=== PATIENT | male | born 1940 | race Caucasian/White ===

== ENCOUNTER 2017-12-10 10:19 | Inpatient (IN) | payer MEDICARE ==
[2017-12-10] MEDS ORDERED: NS 0.9% 1000 ML* 1,000 ML IV ONE (10:23)
[2017-12-10] MEDS ORDERED: niCARdipine 0.1MG/ML IVPREMIX* 20 MG/200 ML BAG IV ONE (10:24)
--- NOTE | 2017-12-10 10:30 | ED ---
Neurological HPI - HPI Summary HPI Summary: This patient is a 77 year old M BIBA accompanied by a female with a chief complaint of left sided numbness since 6:30 AM this morning. EMS reported left sided numbness, left side facial droop, slurred speech, and PMHx of CHF. Pt woke up feeling nml but started feeling symptoms around 6:30 AM. Pt does not recall whether his speech was nml upon waking Pt reports weakness. Pt denies CUMMINS and smoking (former smoker). PMHx of stroke three years ago, after which the pt felt his balance was off when walking, but did not feel weak. Pt reports taking aspirin regularly but no other medications. - History of Current Complaint Stated Complaint: LEFT SIDE WEAKNESS Time Seen by Provider: 12/10/17 10:23 Hx Obtained From: Patient, Family/Principal Bioinformatics Specialist Onset/Duration: Sudden Onset Timing: Constant Onset Severity: Severe Current Severity: Severe Neurological Deficit Location: LUE, LLE Character: Weak, Impaired Speech - Additional Pertinent History Primary Care Physician: ADAM - Allergy/Home Medications Allergies/Adverse Reactions: Allergies Allergy/AdvReac Type Severity Reaction Status Date / Time lisinopril Allergy Intermediate Coughing Verified 12/10/17 11:45 Home Medications: Home Medications Aspirin EC TAB* [Ecotrin EC Low Dose 81 MG*] 81 mg PO DAILY 12/10/17 [History Confirmed 12/10/17] Metoprolol Tartrate TAB* [Lopressor TAB*] 50 mg PO BID 12/10/17 [History Confirmed 12/10/17] amLODIPine TAB* [Norvasc 5 mg TAB*] 10 mg PO DAILY 12/10/17 [History Confirmed 12/10/17] PMH/Surg Hx/FS Hx/Imm Hx Cardiovascular History: Reports: Hx Congestive Heart Failure, Hx Hypertension, Hx Valvular Heart Disease - CHOLESTEROL CONTROL WITH MEDS, Other Cardiovascular Problems/Disorders - CHOLESTEROL CONTROL WITH MEDIS Denies: Hx Pacemaker/ICD GI History: Reports: Hx Gastroesophageal Reflux Disease - RELATED TO WHAT HE EATS, MAINLY SPICY FOODS, NONE RECENLY History: Reports: Other Problems/Disorders - 1994 BLADDER CANCER Sensory History: Reports: Hx Cataracts - with surgery Denies: Hx Contacts or Glasses, Hx Glaucoma, Hx Hearing Aid Opthamlomology History: Reports: Hx Cataracts - with surgery Denies: Hx Contacts or Glasses, Hx Glaucoma Neurological History: Reports: Hx Transient Ischemic Attacks (TIA) - 2004 Psychiatric History: Denies: Hx Panic Disorder - Cancer History Cancer Type, Location and Year: Bladder CA 1995; recurrence last week. Hx Chemotherapy: No - Surgical History Surgery Procedure, Year, and Place: 1959'S GLASS REMOVED FROM LEFT WRIST,. 1995 CYSTOSCOPY WITH TURBT, [facility]. CATARACT SURGERY 1996 & 2012, [facility] AND [place]. 08/2014 CYSTOSCOPY WITH TURBT, [facility] Hx Anesthesia Reactions: No - Family History Known Family History: Positive: Cardiac Disease, Hypertension Family History: No FHx of malignant hyperthermia or anesthesia reaction. - Social History Alcohol Use: Occasionally Substance Use Type: Reports: None Hx Tobacco Use: No Smoking Status (MU): Former Smoker Type: Cigarettes Amount Used/How Often: 1 PPD/ Length of Time of Smoking/Using Tobacco: 35 YRS Have You Smoked in the Last Year: No Review of Systems Negative: Fever Negative: Vomiting Positive: Weakness - left sided, Numbness - left side, Slurred Speech. Negative : Headache All Other Systems Reviewed And Are Negative: Yes Physical Exam - Summary Physical Exam Summary: Appearance: Well appearing, no pain distress Skin: warm, dry, reflects adequate perfusion Head/face: normal Eyes: EOMI, WESLY ENT: normal Neck: supple, non-tender Respiratory: CTA, breath sounds present, lungs diminished but clear Cardiovascular: RRR, pulses symmetrical, heart bradycardic Abdomen: non-tender, soft Bowel Sounds: present Musculoskeletal: LLE weakness with dysarthria, ataxia in the left side Neuro: normal, sensory motor intact, A&Ox3 GCS: 15 Triage Information Reviewed: Yes Vital Signs Reviewed: Yes Diagnostics - Laboratory Result Diagrams: 12/10/17 11:36 12/10/17 11:36 Lab Statement: Any lab studies that have been ordered have been reviewed, and results considered in the medical decision making process. - Radiology Brain MRI Radiology Interpretation Completed By: Radiologist - Small focus of acute or subacute ischemia at the RIGHT para midline midbrain ruddy junction. Negative for mass effect. #. Moderate involutional change and stigmata of chronic small vessel ischemic disease. #. Paranasal sinus disease without stigmata of acute sinusitis. RIGHT mastoid effusions. Results discussed with Nurse Matute in the ICU 12/10/2017 4:38 PM EDT ED Physician reviewed this report CXR Radiology Interpretation Completed By: Radiologist - IMPRESSION: NO ACTIVE CARDIOPULMONARY DISEASE. ER Physician reviewed this report - CT Brain CT Interpretation Completed By: Radiologist - NO ACUTE INTRACRANIAL PATHOLOGY. MILD CHRONIC SMALL VESSEL ISCHEMIC CHANGE. PRELIMINARY FINDINGS WERE DISCUSSED WITH DR. MEJÍA IN THE EMERGENCY DEPARTMENT AT APPROXIMATELY 10:35 AM ON DECEMBER 10, 2017. Head CTA CT Interpretation Completed By: Radiologist - 1. ATHEROSCLEROSIS. 2. 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 NO RIGHT INTERNAL CAROTID ARTERY STENOSIS BY NASCET CRITERIA. 3. MODERATE STENOSIS OF THE PROXIMAL THIRD OF THE BASILAR ARTERY. 4. CHRONIC SMALL VESSEL ISCHEMIC CHANGE. ER Physician reviewed this report - EKG 10:40 Cardiac Rate: Bradycardia - 52 bpm EKG Rhythm: Sinus Bradycardia ST Segment: Non-Specific EKG Interpretation: Nml axis, no ectopy NIH Scale - NIH Scale Level of Consciousness: Alert/Keenly Responsive Ask Patient the Month and His/Her Age: Both Correct Ask Pt to Open/Close Eyes and Supervisor Powdered Sugar/Release Non-Paretic Hand: Both Correctly Best Gaze (Only Horizontal Eye Movement): Normal Visual Field Testing: No Visual Loss Facial Paresis-Pt to Smile & Close Eyes or Grimace Symmetry: Normal/Symmetrical Motor Function - Right Arm: No Drift-Holds 10 Seconds Motor Function - Left Arm: No Drift-Holds 10 Seconds Motor Function - Right Leg: No Drift-Holds 10 Seconds Motor Function - Left Leg: Drifts LT 10 seconds Limb Ataxia-Must be out of Proportion to Weakness Present: Present in Two Limbs - left arm and leg Sensory (Use Pinprick to Test Arms/Legs/Trunk/Face): Normal Best Language (Describe Picture, Name Items): No Aphasia Dysarthria (Read Several Words): Slurs Some Words Extinction and Inattention: No Abnormality Total Score: 4 Re-Evaluation - Re-Evaluation First Eval Re-Evaluation Time: 11:33 Change: Improved Comment: BP is 168 systolic, waiting for report from radiologist Course/Dx - Course Course Of Treatment: Patient presents with new neurologic deficit. Originally his time of onset was found to be 6:30. However this was changed to a wake stroke event further questioning. His NIH range from 4-6. CT was negative. Neurology evaluated in the bedside. CTA was performed and found there was no large vessel occlusion. The patient had a very elevated blood pressures started on Cardene drip. This was managed to a blood pressure of roughly 168 systolic. Patient was given rectal aspirin and will be admitted to the telemetry service by the hospitalist. - Differential Dx Differential Diagnoses Neuro: Positive: Other - CVA, metabolic, intracranial hemorrhage. - Diagnoses Provider Diagnoses: CVA (cerebral vascular accident), Uncontrolled hypertension, Left-sided sensory deficit present During the Visit The Following Alert/Code Occurred: Code Coy - 10:21 AM - Physician Notifications Discussed Care Of Patient With: Danyel Renteria Time Discussed With Above Provider: 12:12 Instructed by Provider To: Admit As Inpatient - Critical Care Time Critical Care Time: 30-74 min - CCT is EXCLUSIVE of separately billable procedures. Discharge - Sign-Out/Discharge Documenting (check all that apply): Patient Departure - Admit - Discharge Plan Condition: Guarded Disposition: ADMITTED TO [facility] - Billing Disposition and Condition Condition: GUARDED Disposition: Admitted to [facility] Consult Consult: 12:[address] Persaud, neurology with results of the CTA
[2017-12-10] MEDS ORDERED: Alteplase* 100 MG VIAL IV ONE ×2 (10:35)
--- NOTE | 2017-12-10 10:39 | RAD ---
HISTORY: Neurological changes/code jackson COMPARISONS: None TECHNIQUE: Multiple contiguous axial CT scans were obtained of the head without intravenous contrast. FINDINGS: HEMORRHAGE/INFARCT: There is no hemorrhage or acute infarct. MASSES/SHIFT: There is no mass or shift. EXTRA-AXIAL SPACES: There are no extra-axial fluid collections. SULCI AND VENTRICLES: The sulci and ventricles are normal in size and position for the patient's stated age. CEREBRUM: There is mild hypoattenuation of the periventricular and subcortical white matter. BRAINSTEM: There are no focal parenchymal abnormalities. CEREBELLUM: There are no focal parenchymal abnormalities. VESSELS: The vessels are grossly normal. PARANASAL SINUSES: The paranasal sinuses are clear. ORBITS: The orbits are unremarkable. BONES AND SOFT TISSUE: No bone or soft tissue abnormalities are noted. OTHER: None IMPRESSION: NO ACUTE INTRACRANIAL PATHOLOGY. MILD CHRONIC SMALL VESSEL ISCHEMIC CHANGE. PRELIMINARY FINDINGS WERE DISCUSSED WITH DR. MEJÍA IN THE EMERGENCY DEPARTMENT AT APPROXIMATELY 10:35 AM ON DECEMBER 10, 2017.
[2017-12-10] MEDS ORDERED: Aspirin 81 mg CHEW TAB* 81 MG TAB.CHEW PO ONE (10:40)
[2017-12-10] MEDS ORDERED: Aspirin SUPP* 300 MG PR ONE (10:42)
[2017-12-10] MEDS ORDERED: Iodixanol* (CONTRAST) 320 MG/ML 100 ML SDV IV ONE (10:53)
[2017-12-10 11:19] LABS: INR 0.93 (0.77-1.02)
[2017-12-10 11:35] LABS: EGFR Non-African American 63.7 (>60)
--- NOTE | 2017-12-10 11:51 | RAD ---
HISTORY: stroke sx COMPARISONS: Head CT dated December 10, 2014, CT dated November 07, 2012 TECHNIQUE: Multiple contiguous axial CT scans were obtained of the head and neck after the administration of nonionic intravenous contrast timed to the systemic arterial phase of contrast enhancement. Coronal and sagittal multiplanar reformations are submitted for review. Multiple 3-D maximum intensity projection reconstructions are also submitted for review. FINDINGS: CTA NECK: AORTIC ARCH: There is a bovine configuration, with the left common carotid artery originating from the brachiocephalic trunk. There is no ostial or proximal stenosis of the cephalic great vessels. RIGHT VERTEBRAL ARTERY: The right vertebral artery is patent along its course, without stenosis. LEFT VERTEBRAL ARTERY: The left vertebral artery is patent along its course, without stenosis. DOMINANCE: The left vertebral artery is dominant. RIGHT COMMON CAROTID ARTERY: The right common carotid artery is patent. The right carotid bifurcation occurs at C4-C5 RIGHT INTERNAL CAROTID ARTERY: There is atheromatous disease of the right carotid bifurcation, without right internal carotid artery stenosis by NASCET criteria. RIGHT EXTERNAL CAROTID ARTERY: The right external carotid artery is unremarkable. LEFT COMMON CAROTID ARTERY: The left common carotid artery is patent. The left carotid bifurcation occurs at C3-C4 LEFT INTERNAL CAROTID ARTERY: There is atheromatous disease of the left carotid bifurcation and proximal internal carotid artery. This results in approximately 30% short segment stenosis of the left internal carotid artery by NASCET criteria. LEFT EXTERNAL CAROTID ARTERY: The left external carotid artery is unremarkable. VENOUS CIRCULATION: The venous system is unremarkable. SALIVARY GLANDS: The parotid glands, submandibular glands, sublingual glands are normal. NASAL CAVITY/NASOPHARYNX: The nasal cavity and nasopharynx are normal. ORAL CAVITY/OROPHARYNX: The oral cavity and oropharynx are unremarkable. LARYNGEAL APPARATUS/HYPOPHARYNX: The laryngeal apparatus and hypopharynx are normal. UPPER AIRWAY/UPPER ESOPHAGUS: The visualized upper airway and esophagus are normal. LUNG APICES: The lung apices are clear. There are subcentimeter short axis paratracheal lymph nodes. THYROID GLAND: The thyroid gland is normal. LYMPH NODES: There is no lymphadenopathy by size criteria. BONES AND SOFT TISSUES: Degenerative changes are noted along the spine. CTA HEAD: INTRACRANIAL CIRCULATION: There is atheromatous disease with moderate narrowing of the proximal third of the basilar artery. Elsewhere, there is no aneurysm, vascular malformation, occlusion, or stenosis of the visualized intracranial circulation. The anterior communicating artery complex is dominant over the A1 segment of the right anterior cerebral artery. The anterior communicating artery complex is clear. Bilateral posterior communicating arteries are identified. VENOUS CIRCULATION: The venous system is unremarkable. PERFUSION: There is no obvious parenchymal perfusion deficit. HEMORRHAGE/INFARCT: There is no hemorrhage or acute infarct. MASSES/SHIFT: There is no mass or shift. EXTRA-AXIAL SPACES: There are no extra-axial fluid collections. SULCI AND VENTRICLES: The sulci and ventricles are normal in size and position for the patient's stated age. CEREBRUM: There is hypoattenuation of the periventricular and subcortical white matter. BRAINSTEM: There are no focal parenchymal abnormalities. CEREBELLUM: There are no focal parenchymal abnormalities. PARANASAL SINUSES: The paranasal sinuses are clear. ORBITS: The orbits are unremarkable. BONES AND SOFT TISSUE: No bone or soft tissue abnormalities are noted. OTHER: There is no abnormal enhancement. IMPRESSION: 1. ATHEROSCLEROSIS. 2. 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 NO RIGHT INTERNAL CAROTID ARTERY STENOSIS BY NASCET CRITERIA. 3. MODERATE STENOSIS OF THE PROXIMAL THIRD OF THE BASILAR ARTERY. 4. CHRONIC SMALL VESSEL ISCHEMIC CHANGE. CPT II Codes: 3100F
[2017-12-10 11:59] LABS: ABS Basophils 0.1 10^3/ul (0-0.2); ABS Eosinophils 0.3 10^3/ul (0-0.6); ABS Lymphocytes 0.6 10^3/ul (1.0-4.8); ABS Monocytes 0.4 10^3/ul (0-0.8); ABS Neutrophils 3.9 10^3/ul (1.5-7.7); ABS Nucleated RBC 0 10^3/ul; Eosinophil % 5.1 % (0-6); Hematocrit 45 % (42-52); Hemoglobin 15.6 g/dl (14.0-18.0); Lymphocyte % 12.3 % (25-47); Mean Corpuscular HGB Conc 35 g/dl (31-36); Mean Corpuscular Hemoglobin 32 pg (27-31); Mean Corpuscular Volume 92 fL (80-94); Nucleated Red Blood Cells % 0.1; Platelet Count 196 10^3/ul (150-450); Red Blood Count 4.91 10^6/ul (4.00-5.40); Red Cell Distribution Width 14 % (10.5-15); White Blood Count 5.3 10^3/ul (3.5-10.8)
[2017-12-10 12:10] LABS: Urine Appearance Clear; Urine Blood 1+ (Negative); Urine Color Yellow; Urine Ketones Negative (Negative); Urine Protein Negative (Negative); Urine Red Blood Cell Trace(0-2/hpf) (Absent); Urine Urobilinogen Negative (Negative); Urine White Blood Cell Absent (Absent)
--- NOTE | 2017-12-10 12:17 | RAD ---
HISTORY: Neurological Changes/Code Jonas COMPARISONS: September 05, 2014 VIEWS: 1: frontal portable view of the chest at 11:30 AM FINDINGS: LINES AND TUBES: None. CARDIOMEDIASTINAL SILHOUETTE: The cardiomediastinal silhouette is normal for portable technique. PLEURA: The costophrenic angles are sharp. No pleural abnormalities are noted. LUNG PARENCHYMA: The lungs are clear. ABDOMEN: The upper abdomen is clear. There is no subphrenic gas. BONES AND SOFT TISSUES: No bone or soft tissue abnormalities are noted. IMPRESSION: NO ACTIVE CARDIOPULMONARY DISEASE.
[2017-12-10] MEDS ORDERED: Acetaminophen TAB* 325 MG PO PRN (13:10)
[2017-12-10] MEDS ORDERED: Ondansetron INJ* 2 MG/ML VIAL IV PRN (13:10)
--- NOTE | 2017-12-10 13:15 | CONS ---
CONSULTATION REPORT: ADDENDUM: I discussed this with Sarai Root NP, and recommended aspirin, rectally or by mouth, and Plavix once he has cleared swallowing, as well as a statin. [id number]/[facility] #: [id number] [facility]
[2017-12-10] MEDS: Clopidogrel TAB* 75 MG PO SCH (13:53)
--- NOTE | 2017-12-10 14:21 | CONS ---
CONSULTATION REPORT: DATE OF CONSULT: PATIENT OF: Dr. Hatch. HISTORY OF PRESENT ILLNESS: This is a 77-year-old man who I am asked to evaluate for possible stroke . When he initially came in, his last known well was labelled at 6:30 and I was seeing him at rough y 10:30 about 15 minutes after he came by ambulance. However, in talking to him, it is clear that wh en he woke up and got out of bed is when he noticed his deficits and was not sure whether he woke up with his last known well was actually the night before. His symptoms include some slurred speech, so me incoordination, weakness, and numbness which is now improving overtime. PAST MEDICAL HISTORY: Significant for: 1. Stroke. 2. Hypertension. 3. Morbid obesity. 4. GERD. 5. Decreased vision. 6. Bladder cancer. 7. Skin cancer. Of note, he had a stroke back in 2012 consisting of numbness in the left side of his arm and leg with out any speech problems. CURRENT MEDICATIONS: Include: 1. Amlodipine 10 mg daily. 2. Metoprolol 50 mg b.i.d. 3. Aspirin 81 mg daily. ALLERGIES: Include LISINOPRIL. SOCIAL HISTORY: He has had a 35-year history of smoking. REVIEW OF SYSTEMS: Negative in all 14 spheres other than the HPI. PHYSICAL EXAM: On exam, temperature 98.5, pulse 53, respiratory rate 20, blood pressure 174/90 curre ntly. When he first came in, I ran an NIH stroke scale of 6 for mild dysarthria, pronator drift, pop e finger and nose and left leg dysmetria and decreased sensation findings. Currently, he has intact sensation. His facial droop improved. He still has mild dysarthria. [id number] is improved, bu t not resolved. His cranial nerves II through XII were intact. Fundi were benign. Motor exam reveal ed normal tone and strength. Chest: Clear. Cardiovascular: Regular rate and rhythm. Abdomen is so ft with positive bowel sounds. DIAGNOSTIC STUDIES/LAB DATA: CT scan of his head showed some chronic ischemic small vessel disease, but no acute bleed or other findings. His CTA showed some moderate stenosis in his proximal one-thir d of his basilar artery, 30% of his left internal carotid artery. In addition to moderate basilar ar sherly stenosis, there was about 30% stenosis in his left carotid. Blood work to this point includes normal CBC, INR PTT. LDL is 100. CMP was normal. He will need to be on statins and aspirin and Plavix. I have spoken to Dr. Marck Cintron given the mo derate stenosis of his basilar artery whether there would be any benefit for him being up there just in case he worsened. At this point, with single episode and he has started doing relatively well, Dr Connie Cintron thought it was unlikely that he would need to go up to [place] at any point and we will keep him down here. He is going to review the CTA and call me if there is any change in that. [id number]/[facility] #: [id number]
--- NOTE | 2017-12-10 15:19 | HP ---
CC: PATRICK James * [facility] MEDICINE HISTORY AND PHYSICAL: DATE OF ADMISSION: 12/10/17. PRIMARY CARE PROVIDER: PATRICK James. ATTENDING PHYSICIAN: Peter Renteria MD * (dictation provided by Sarai Root NP). CHIEF COMPLAINT: Slurred speech, left sided facial droop and left sided weakness. HISTORY OF PRESENT ILLNESS: Mr. Huertas is a 77-year-old male with a past medical history of CVA in 2013, hypertension, hyperlipidemia, and diastolic congestive heart failure who presents today at the hospital with concern for waking up this morning with slurred speech, left facial droop and left sided weakness. Mr. Huertas states that yesterday he was out playing golf and feeling quite well. He does have a history of CVA back in 2012, but states that all those symptoms had resolved in the interim. He follows with PATRICK [facility] at the [facility], and reports that he believes he has had good control of his blood pressure. This morning when he awoke at 6:30, he discovered that he had slurred speech, left facial droop, and left sided weakness in both upper and lower extremities. He ultimately called the EMS and was brought to the hospital where he arrived at approximately 10:17 a.m. The patient was not an appropriate candidate for TPA, as he awoke from sleep with the symptoms at the time of onset was unknown. He was immediately assessed by Dr. Persaud, who reviewed the CT brain and head and neck CTA. The CTA showed moderate stenosis at the proximal basilar artery, this was reviewed with Dr. Ethan Cintron, in [place] from the stroke team and there was no indication for transfer. Mr. Huertas' only other issue today is that his blood pressure was significantly elevated on arrival to maximum of 204/95, he has been started on nifedipine drip. The remainder of his labs are unremarkable. He has a good lipid profile with triglycerides 106, cholesterol 159, LDL 100, HDL 38.0. PAST MEDICAL HISTORY: 1. [place] CVA in 2012. 2. Hypertension. 3. Hyperlipidemia. 4. Diastolic congestive heart failure. 5. History of left and right cataract removal. 6. Transitional cell bladder cancer with resections by Dr. Bartholomew. MEDICATIONS: 1. Metoprolol tartrate 50 mg p.o. b.i.d. 2. Amlodipine 10 mg p.o. daily. 3. Aspirin 81 mg p.o. daily. ALLERGIES: To LISINOPRIL. FAMILY HISTORY: The patient reports that his father and brother had suspected lymphoma. SOCIAL HISTORY: The patient was a alf smoker, but quit in 1994. There is no report of alcohol or drug use. He states that his daughters, Olena and Marely would be his healthcare proxies. REVIEW OF SYSTEMS: A 14-point review of systems was completed with Mr. Huertas and all not mentioned above were negative. PHYSICAL EXAMINATION GENERAL: Mr. Huertas is lying in the bed. He has multiple family members at the bedside. He is in no acute distress. VITAL SIGNS: Temperature 98.5, pulse rate 67, respiratory rate 15, O2 saturation 98% on room air, blood pressure 134/91. LUNGS: Clear to auscultation bilaterally with no accessory muscle use and good aeration. HEART: S1 and S2. No murmur, rub, or gallop and regular. ABDOMEN: Soft and nontender. Bowel sounds positive x4. EXTREMITIES: No cyanosis. +1 lower extremity edema to the ankle of the right leg which patient attributes to history of right ankle fracture. NEURO: He is alert, he is oriented x3. He has slurred speech, but he is able to make himself understood. He is hard of hearing. He has a left facial droop. He has left upper extremity weakness. He has ataxia to the left upper extremity. He has left lower extremity weakness, both measured at approximately +4. He has good strength to right upper and lower extremity with +5 strength. His pupils are equal and reactive. Extraocular movements are intact. SKIN: Intact. LABORATORY DATA: WBC 5.3, hemoglobin 15.6, hematocrit 45, platelet count 196. INR 0.93. Sodium 136, potassium 4.3, chloride 108, serum bicarbonate 19, BUN 18 , creatinine 1.12, glucose 122, lactic acid 1.5, troponin 0.00, triglycerides 106, cholesterol 159, LDL 100, HDL 38.0. Urine shows no evidence of infection. CT brain, "no acute intracranial pathology, mild chronic, small vessel ischemic change". Chest x-ray shows, "no active cardiopulmonary disease". EKG shows sinus bradycardia with no significant change from previous EKG from 2014, although T-wave inversions were noted in 2016 have resolved. The head and neck CTA is read as follows, "atherosclerosis, approximately 30% short segment stenosis of the proximal left internal carotid artery by NASCET criteria, no right internal carotid artery stenosis by NASCET criteria. Moderate stenosis of the proximal third of the basilar artery. Chronic small vessel ischemic change". ASSESSMENT AND PLAN: Ms. Huertas is a 77-year-old male with past medical history of cerebrovascular accident in 2012, with no residual symptoms, hypertension, hyperlipidemia, who presents today to the hospital with concern for the waking up this morning at 6:30 with symptoms of slurred speech, left sided weakness and left facial droop. Our plans for inpatient admission as I expect his length of stay to be greater than 2 days for the followin. Left sided weakness, slurred speech and suspected cerebrovascular accident: I appreciate the consultation from Dr. Persaud from Neurology. He has spoken with Dr. Ethan Cintron from neurology team in [place]. At this time, there is no indication for transfer. The patient was not a candidate for TPA, as the time of onset was unknown. Recommendations will be to control blood pressure with a goal of blood pressure 160 to 180. He will be on nifedipine drip in the intensive care unit to that end. The patient will be monitored on telemetry. He will have a transthoracic echocardiogram. His lipid profile is at goal, but will initiate statin for new cerebrovascular accident. He is to continue on aspirin with the addition of Plavix. He will have physical, occupation and speech therapy once out of his acute period this afternoon. We will also plan to check hemoglobin A1c now which is pending. 2. Hypertension. Plan to continue nifedipine drip and resume home metoprolol and amlodipine and we can add additional agents as necessary, but we would like to allow for permissive hypertension during acute stroke period. 3. History of diastolic congestive heart failure, no evidence of acute exacerbation. 4. Code status is DNR. The MOLST form has been completed. 5. Disposition to ICU based on need for nifedipine drip. TIME SPENT: Approximately 60 minutes were spent on the admission of this patient, more than half the time spent with the patient at the bedside reviewing the events leading up to this hospitalization with him and his family , performing the physical examination, and reviewing the plan of care. SARAI ROOT, BLACKJACK DEALER [id number]/[facility] #: [id number] [facility]
--- NOTE | 2017-12-10 16:39 | RAD ---
Indication: Slurred speech, LEFT-sided weakness and numbness. Comparison: CT angiogram head and neck of the same date. Noncontrast head CT of the same date. Technique: [facility] [place] [place] 1.5 Evelyn [id number] with GEM suite. MRI brain without contrast. Report: Small region of restricted diffusion at the RIGHT para midline midbrain ruddy junction with corresponding decreased signal on ADC map consistent with acute or subacute ischemia. No additional foci of acute or subacute ischemic change evident. Susceptibility series is negative for stigmata of hemosiderin deposition to indicate previous hemorrhage. Moderate prominence of the cerebral sulci reflecting atrophy. Unremarkable ventricles and basal cisterns. Normal variant prominent perivascular spaces at the basal ganglia. Moderate burden of increased T2 signal in the periventricular white matter of the cerebral hemispheres most consistent with chronic small vessel ischemic disease. Unremarkable orbital contents. Preserved major intracranial flow-voids. No suspicious calvarial or skull base lesions evident. Mucosal thickening at the bilateral maxillary and ethmoid sinuses as well as the LEFT sphenoid sinus. No paranasal sinus air-fluid levels evident. RIGHT mastoid effusions. IMPRESSION: #. Small focus of acute or subacute ischemia at the RIGHT para midline midbrain ruddy junction. Negative for mass effect. #. Moderate involutional change and stigmata of chronic small vessel ischemic disease. #. Paranasal sinus disease without stigmata of acute sinusitis. RIGHT mastoid effusions. Results discussed with Nurse Matute in the ICU 12/10/2017 4:38 PM EDT
[2017-12-10] MEDS: niCARdipine 0.1MG/ML IVPREMIX* 20 MG/200 ML BAG IV SCH ×3 (16:43→21:05)
--- NOTE | 2017-12-10 17:58 | ECHO ---
Patient: ZACH SHIRLEY [facility] Rec#: [id number] : 1940 Date: 12/10/2017 Age: 77y Height: 183 cm / 72.0 in Weight: 99.8 kg / 220.0 lbs Sex: M BSA: 2.22 Room#: [facility] Admit Date#: 12/10/2017 Type: Inpatient Referring: Sarai Root NP Reading: Lamine Eduardo MD Inspector Receiving: Marietta Hidalgo RDCS CC: Ellen Grant Transthoracic Echocardiogram Indication: CVA BP: 134/91 HR: 53 Rhythm: Bradycardia Findings History: HTN, smoker, CVA. Technical Comments: The study is technically limited due to poor parasternal windows. Completed at 1550. Left Ventricle: The left ventricular chamber size is normal. Mild to moderate concentric left ventricular hypertrophy is observed. Global left ventricular wall motion and contractility are within normal limits.There is occasional paradoxical distal apico-septal wall motion noted of unclear significance. There is normal left ventricular systolic function. The estimated ejection fraction is 55-60%. Abnormal left ventricular diastolic filling is observed, consistent with impaired relaxation. Left Atrium: The left atrium is moderately dilated. Right Ventricle: Moderator Band present. The right ventricle is slightly dilated. The right ventricular global systolic function is normal. Right Atrium: The right atrium is moderately dilated. Interatrial septum appears intact without evidence of shunting. The bubble study is negative. A patent foramen ovale is not demonstrated with color Doppler and agitated contrast. Aortic Valve: The aortic valve is trileaflet. The aortic valve leaflets are mildly thickened. There is no evidence of aortic regurgitation. There is no evidence of aortic stenosis. Mitral Valve: There is mitral annular calcification. The mitral valve leaflets are mildly thickened. There is trace to mild mitral regurgitation. Tricuspid Valve: The tricuspid valve leaflets are normal. There is trace tricuspid regurgitation. Unable to estimate the right ventricular systolic pressure. Pulmonic Valve: The pulmonic valve structure is not well visualized. There is no evidence of pulmonic regurgitation. There is no pulmonic stenosis. Pericardium: There is no significant pericardial effusion. A pericardial fat pad is visualized. Aorta: There is mild dilatation of the ascending aorta. There is no dilatation of the aortic arch. There is mild dilatation of the aortic root. Pulmonary Artery: The main pulmonary artery is not well visualized. Venous: The inferior vena cava is dilated. There is a greater than 50% respiratory change in the inferior vena cava dimension. Contrast: Normal saline was used as contrast for the bubble study. Intravenous contrast was used to help determine presence of intracardiac shunting. Conclusions There is normal left ventricular systolic function. The estimated ejection fraction is 55-60%. Global left ventricular wall motion and contractility are within normal limits.There is occasional paradoxical distal apico-septal wall motion noted of unclear significance. The left ventricular chamber size is normal. Mild to moderate concentric left ventricular hypertrophy is observed. Abnormal left ventricular diastolic filling is observed, consistent with impaired relaxation. The left atrium is moderately dilated. The right atrium is moderately dilated. A patent foramen ovale is not demonstrated with color Doppler nor agitated contrast. Functionally benign heart valves. There is mild dilatation of the ascending aorta. There is mild dilatation of the aortic root. Since the prior echocardiogram completed 11/08/12, there appears to be little change. Measurements Name Value Normal Range RVIDd (AP) 2D 4 cm (0.9 - 2.6) RVDdMajor (2D) 4.42 cm (2.2 - 4.4) RAd ISD 4CH 5.6 cm (3.4 - 4.9) RA (A4C)W 5.2 cm (2.9 - 4.6) IVSd (2D) 1.5 cm (0.6 - 1) LVPWd (2D) 1.3 cm (0.6 - 1) LVIDd (2D) 4.8 cm (3.6 - 5.4) LVIDs (2D) 2.6 cm - LV FS (2D) 46 % (25 - 45) Aortic Annulus 2.2 cm (1.4 - 2.6) Ao root diameter (2D) 3.8 cm (2.1 - 3.5) Ascending Ao 3.6 cm (2.1 - 3.4) Aortic arch 2.5 cm (1.8 - 3.4) LA dimension (AP) 2D 5.1 cm (2.3 - 3.8) LAd ISD 4CH 6.4 cm (2.9 - 5.3) LA ISD 4CH W 4.8 cm (2.5 - 4.5) Name Value Normal Range LA ESV BP (A/L) index 36 ml/m2 - Name Value Normal Range MV E-wave Vmax 0.67 m/sec - MV deceleration time 391 msec - MV A-wave Vmax 0.98 m/sec - MV E:A ratio 0.7 ratio - LV septal e' Vmax 0.04 m/sec - LV lateral e' Vmax 0.08 m/sec - LV E:e' septal ratio 16.75 ratio - LV E:e' lateral ratio 8.38 ratio - Name Value Normal Range AV Vmax 1.5 m/sec - AV VTI 34.7 cm - AV peak gradient 9 mmHg - AV mean gradient 4 mmHg - LVOT Vmax 1.48 m/sec - LVOT VTI 35 cm - LVOT peak gradient 9 mmHg - LVOT mean gradient 4 mmHg - RUFINA Vmax 0.61 m/sec - Name Value Normal Range IVC diameter 2.9 cm - Name Value Normal Range PV Vmax 1.2 m/sec - PV peak gradient 5 mmHg -
[2017-12-10] MEDS ORDERED: Metoprolol Tartrate TAB* 50 mg PO SCH (21:00)
[2017-12-10] MEDS ORDERED: Metoprolol Tartrate TAB* 25 MG PO ONE (21:00)
[2017-12-10] MEDS: Atorvastatin* 40 MG TAB PO SCH (21:14)
[2017-12-11] MEDS: Aspirin EC TAB* 81 MG TAB.EC PO SCH (08:12)
[2017-12-11] MEDS: amLODIPine TAB* 5 MG PO SCH (08:13)
[2017-12-11] MEDS: Clopidogrel TAB* 75 MG PO SCH (08:13)
[2017-12-11] MEDS ORDERED: Metoprolol Tartrate TAB* 50 mg PO SCH (09:00)
[2017-12-11] MEDS: hydrALAZINE IV* 20 MG/ML VIAL IV SLOW PU PRN (16:39)
[2017-12-11] MEDS: Atorvastatin* 40 MG TAB PO SCH (16:39)
--- NOTE | 2017-12-11 17:01 | PN ---
NEUROLOGY PROGRESS NOTE: DATE OF FOLLOWUP: 12/11/17 HISTORY: No acute overnight events. Mr. Huertas tells me that he feels essentially back to his baseline today. His only complaint is that he is hungry and feels he is not getting enough food in the hospital. He tells me that he thinks he was normal upon awakening and then subsequently developed symptoms after turning on his coffee pot, but could not be completely definitive about that. In any case as mentioned, he feels that he has full strength in his arm, in his leg, and that his speech is back to baseline. He reports that family members were in to visit him today and feel that his facial appearance is back to baseline as is his speech. MEDICATIONS: Reviewed and include: 1. Amlodipine 10 mg daily. 2. Aspirin 81 mg daily. 3. Lipitor 40 mg daily. 4. Plavix 75 mg daily. 5. Metoprolol 50 mg twice daily. Of note, he was on a nicardipine drip yesterday until the evening when he was moved to [address] [place] [address]. PHYSICAL EXAMINATION: Vital Signs: Temperature 97.8, blood pressure 150/69, heart rate 56, oxygen saturation 99% on room air. His blood pressures yesterday in terms of the diastolic was sometimes elevated in to the low 100s and with one solitary reading as high as 132, but in general his blood pressures ranged in the 140s to 180s systolic. On general examination, he is in no acute distress. His heart is in a regular rate and rhythm with no obvious murmurs. There are no carotid bruits. Lungs showed some wheezing bilaterally. He had scattered skin tears and ecchymosis over his extremities, especially his arms and both IV sites. Had some sanguineous drainage around them. On neurologic exam, he is fully awake, alert, and oriented. His speech is mildly indistinct, but he reports this is at his baseline. Pupils were equal, round, and reactive from 3 to 2 mm bilaterally. Versions are full without nystagmus. Damon are full to confrontation. No extinction on double simultaneous stimulation. Facial sensation is intact and symmetric to light touch. He does appear to have slight left lower facial weakness, but good activation with smile and again seems to indicate that his family felt he was at his baseline earlier today. Hearing is intact to voice. The palate elevates symmetrically and the tongue is midline. On motor examination, he has full strength in his right upper extremity and bilateral lower extremities. There is mild grade 5- weakness of the left shoulder abductor and a pronator drift on the left, which is mild. Sensation is intact to light touch in the upper and lower extremities. Reflexes were 2+ in the upper extremities and at the knees. Difficult to elicit at the ankles. On [id number] testing, there was no clear ataxia, but slight ataxia on [id number] on the left. He ambulated with a walker with a stable gait, which was narrow based with eversion of his right foot, which he reports is longstanding and related to previous broken ankle. DATA: I reviewed Aleksandar' MRI scan of the brain, which was obtained yesterday and showed evidence of a right paramedian pontine stroke. He also has evidence of small vessel disease in the bilateral cerebral hemispheres. His hemoglobin A1c is 6. Cholesterol study showed triglycerides of 106, total cholesterol 159, LDL 100, HDL 38. 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 Transthoracic echocardiogram showed an EF of 55 to 60% with mild to moderate LVH , moderate dilation of the left and right atriums and no PFO. IMPRESSION: Rm Huertas is a 77-year-old man with a past history of stroke as well as hypertension who came in with left-sided weakness and ataxia, which is much improved today and is secondary to a pontine stroke. On exam today, he has some very mild residual ataxia in the left lower extremity as well as some pronator drift in the left arm, but looks overall like he is recovering quite well from the stroke. He has been placed on dual antiplatelet therapy, which he should continue for 30 days and then discontinue aspirin and continue Plavix. He has been placed again on a statin, which he indicates he had taken previously, but discontinued about five to six years ago because the reasoning behind the medication was not explained to him and when he did not feel any different, he thought it was not working for him. I explained the atheromatous disease that he has in his posterior circulation and encouraged him to continue on this medication as long as he is not experiencing any side effects from it. He should be evaluated by physical therapy as he ambulates with a cane at home and here in the hospital has been ambulating with a walker and does have some evidence of ataxia on his exam, which could impact his gait. As an outpatient, he should have followup with Dr. Persaud and can call for that once he is discharged. If you have any other questions about Mr. Huertas' care during his stay, please do not hesitate to contact us. [id number]/DORIAN #: [id number] SOHAN
--- NOTE | 2017-12-11 17:31 | PN ---
Subjective Date of Service: 12/11/17 Interval History: Pt seen and examined. Meds and labs reviewed. Pt feels better and mentions she is not on O2 at home. ROS: Denied CUMMINS/dizziness, F/C, N/V, CP, SOB, increased cough, sputum production , abd pain, diarrhea, constipation, dysuria, myalgias, arthralgias, throat pain , and new skin lesions. The rest of the 14 point ROS are unremarkable. PHYSICAL EXAM: GEN APPEARANCE: Awake, not in acute distress HEENT: NC/AT, PERRLA, moist oral mucosa, (-) throat erythema NECK: Soft, supple, (-) cervical LAD, (-)JVD HEART: S1S2 WNL, RRR, No MRG CHEST: Bibasal crackles, GAE, No W/R/R ABD: Soft, ND/NT, NABS 4x Q EXT: No C/C/E SKIN: Warm to touch PSYCH: No active psychosis, hallucinations, depression, SI/HI Objective Active Medications: Acetaminophen (Tylenol Tab*) 650 mg PO Q6H PRN PRN Reason: PAIN Amlodipine Besylate (Norvasc Tab*) 10 mg PO DAILY [facility] Last Admin: 12/11/17 08:13 Dose: 10 mg Aspirin (Aspirin Ec Tab*) 81 mg PO DAILY [facility] Last Admin: 12/11/17 08:12 Dose: 81 mg Atorvastatin Calcium (Lipitor*) 40 mg PO 1700 [facility] Last Admin: 12/11/17 16:39 Dose: 40 mg Clopidogrel Bisulfate (Plavix Tab*) 75 mg PO DAILY [facility] Last Admin: 12/11/17 08:13 Dose: 75 mg Hydralazine HCl (Apresoline Iv*) 5 mg IV SLOW PU Q6H PRN PRN Reason: BLOOD PRESSURE Last Admin: 12/11/17 16:39 Dose: 5 mg Metoprolol Tartrate (Lopressor Tab*) 50 mg PO 0900,2100 [facility] Ondansetron HCl (Zofran Inj*) 4 mg IV Q6H PRN PRN Reason: NAUSEA Vital Signs - 8 hr 12/11/17 12/11/17 12/11/17 11:45 16:11 17:10 Temperature 97.8 F 97.6 F Pulse Rate 56 52 58 Respiratory 22 18 Rate Blood Pressure 150/69 178/79 151/82 (mmHg) O2 Sat by Pulse 99 98 100 Oximetry Oxygen Devices in Use Now: None Result Diagrams: 12/10/17 11:36 12/10/17 11:36 Microbiology and Other Data: Microbiology 12/10/17 13:25 Nasal Screen MRSA (PCR) - Final Nasal Mrsa Not Detected Assess/Plan/Problems-Billing Assessment: - Patient Problems (1) CVA (cerebral vascular accident) Current Visit: No Status: Acute Code(s): I63.9 - CEREBRAL INFARCTION, UNSPECIFIED SNOMED Code(s): 461517649 Comment: -Left-sided weakness and slurred speech resolved -MRI, however, reveals small focus of acute/subacute ischemia at the right para- midline midbrain ruddy junction -D/W Dr. Pretty -Continue dual anti-platelets for a month then D/C ASA and continue with Plavix -Continue Atorvastatin -Thought to be not a candidate for tPA given unknown onset (2) Hypertension Current Visit: No Status: Acute Code(s): I10 - ESSENTIAL (PRIMARY) HYPERTENSION SNOMED Code(s): 12062824 Comment: -Will place on PRN Hydralazine PRN for MAP>89 -Continue Metoprolol (3) Chronic diastolic CHF (congestive heart failure) Current Visit: No Status: Acute Code(s): I50.32 - CHRONIC DIASTOLIC ( CONGESTIVE) HEART FAILURE SNOMED Code(s): 914315341 Comment: -History of -Well compensated (4) DVT prophylaxis Current Visit: No Status: Acute Code(s): VSX2073 - SNOMED Code(s): 299661452 Comment: -Will place pt on SCDs Status and Disposition: -For PT/OT eval
[2017-12-11] MEDS: Metoprolol Tartrate TAB* 50 mg PO SCH (20:23)
--- NOTE | 2017-12-11 22:20 | RAD ---
HISTORY: Right lower extremity edema TECHNIQUE: Multiple transverse and longitudinal ultrasound images were obtained of the veins of the right lower extremity using grayscale, color Doppler, and spectral Doppler imaging with and without compression and with augmentation. FINDINGS: VEINS: The common femoral vein, deep femoral vein, femoral vein and popliteal vein are compressible throughout their course, with normal flow on color Doppler imaging and normal response to augmentation on spectral Doppler imaging. SOFT TISSUES: Grossly normal. No large popliteal fossa cyst was identified. IMPRESSION: No sonographic evidence of deep vein thrombosis.
[2017-12-12] MEDS: hydrALAZINE IV* 20 MG/ML VIAL IV SLOW PU PRN (00:11)
[2017-12-12 09:16] VITALS: BP 165/82
[2017-12-12] MEDS: amLODIPine TAB* 5 MG PO SCH (09:34)
[2017-12-12] MEDS: Clopidogrel TAB* 75 MG PO SCH (09:34)
[2017-12-12] MEDS: Metoprolol Tartrate TAB* 50 mg PO SCH (09:35)
[2017-12-12] MEDS: Aspirin EC TAB* 81 MG TAB.EC PO SCH (09:35)
--- NOTE | 2017-12-12 22:50 | DS ---
CC: Dr. Renteria; Dr. Kraig Hatch; Dr. Srinivas Persaud; Ellen Grant NP * DISCHARGE SUMMARY: DATE OF ADMISSION: 12/10/17 DATE OF DISCHARGE: 12/12/17 DISCHARGE DIAGNOSES: Are as follows: 1. Cerebrovascular accident where MRI reveals acute/subacute ischemia at the right paramidline midbrain ruddy junction. 2. Hypertension, improved control. 3. History of diastolic congestive heart failure, well compensated. DISCHARGE MEDICATIONS: Are as follows: 1. Amlodipine 10 mg p.o. daily. 2. Aspirin 81 mg p.o. daily for 1 month and then discontinue. 3. Atorvastatin 40 mg p.o. daily. 4. Plavix 75 mg p.o. daily. 5. Doxazosin 2 mg p.o. q.h.s. 6. Metoprolol tartrate 37.5 mg p.o. b.i.d. HISTORY OF PRESENT ILLNESS/HOSPITAL COURSE: The patient is a 77-year-old gentleman with a history of pontine CVA back in 2012, history of TIA, hypertension, and hyperlipidemia who woke up in the morning of 12/10/17 with slurred speech, left facial droop, and left-sided weakness. He mentioned that the day before he was playing golf and feeling well. However, at around 6:30 in the morning, he experienced the symptoms described above and ultimately called EMS and was brought to the hospital where he arrived at approximately 10: 17 a.m. He was not considered an appropriate candidate for tPA and was immediately assessed by Dr. Persaud, who then reviewed the CT of the brain and head and neck CTA. He was placed on dual antiplatelet therapy with aspirin and Plavix as well as statins and his fasting LDL was found to be at 100 and he was started on atorvastatin at 40 mg p.o. daily. During his hospital course, he was found sometimes to be bradycardiac in the low 50s to mid 40s necessitating withholding his home metoprolol dosing. Prior to discharge, this was then decreased to 37.5 mg p.o. b.i.d. and doxazosin was added to his regimen to control his high blood pressure along with a maximized dose of amlodipine. He was also seen by Dr. Persaud's group on subsequent followups during his hospital stay. The patient was advised to maintain a heart-healthy diet and to continue with his dual antiplatelet therapy and to discontinue aspirin after 1 month since he was on aspirin when he had his most recent stroke. It has been stressed to him that unless otherwise contraindicated and instructed by his physicians to not stop Plavix and statins and he would need to be on this forever unless otherwise contraindicated as discussed. He was also advised to follow up and/ or call his PCP within 3 days post discontinuation for a follow-up post discharge and to call [facility] if his PCP cannot see him any sooner and that both him and his PCP will need to agree that he will need to be seen sooner. He was advised to call my office regarding any questions, concerns , or further clarifications regarding his discharge plans and/or prescriptions, and he was advised to follow up with Dr. Persaud in 1 month and he was given his office number to call to confirm his appointment. He is to discontinue his aspirin in 1 month as discussed and to take his medications as prescribed. PHYSICAL EXAMINATION: Reveals a most recent vital signs of record with blood pressure of 165/82 from previous of 152/71, 65 beats per minute heart rate, 18 per minute respiratory rate. General Appearance: The patient is awake, alert, and oriented x3, not in acute distress. HEENT: Normocephalic, atraumatic. PERRLA. Extraocular muscles intact. Negative for icterus. Moist oral mucosa. Negative throat erythema. Neck is soft, supple, with no cervical lymphadenopathy, no JVD. Heart: S1, S2 within normal limits. Regular rate and rhythm. No murmurs, rubs, or gallops. Chest: Clear to auscultation bilaterally. Good air entry. No wheezes, rales, or rhonchi. Abdomen is soft, nondistended, nontender. Normoactive bowel sounds x4 quadrants. Extremities: No cyanosis, clubbing, or edema. Psychiatric: No active psychosis, depression, suicidal nor homicidal ideations. Skin is warm to touch. REVIEW OF SYSTEMS: The patient denied any recent headaches, dizziness, fevers, chills, nausea, vomiting, chest pain, shortness of breath, increased cough nor sputum production, abdominal pain, diarrhea, constipation, pain and/or increased frequency in urination, myalgias, arthralgias, throat pain, or new skin lesions. The rest of the 14-point review of systems are otherwise unremarkable. TIME SPENT: The total time spent evaluating the patient, reviewing pertinent data and appropriate documentation is greater than 30 minutes. [id number]/[facility] #: [id number]
== END 2017-12-12 14:30 | disposition home or self-care (01) | DRG 65 ==
LOC: ED 10:19 → ICU 12:38 → MEDTELE 21:30
PROVIDERS: ADMIT Internal Medicine; ATTEND Student in an Organized Health Care Education/Training Program
DX: I63.9 Cerebral infarction, unspecified (principal); G81.94 Hemiplegia, unspecified affecting left nondominant side; I50.32 Chronic diastolic (congestive) heart failure; I67.82 Cerebral ischemia; R47.1 Dysarthria and anarthria; R29.810 Facial weakness; R47.81 Slurred speech; I11.0 Hypertensive heart disease with heart failure; K21.9 Gastro-esophageal reflux disease without esophagitis; R29.704 NIHSS score 4; E78.5 Hyperlipidemia, unspecified; I65.1 Occlusion and stenosis of basilar artery; R27.0 Ataxia, unspecified; I65.22 Occlusion and stenosis of left carotid artery; R00.1 Bradycardia, unspecified; Z66 Do not resuscitate; Z85.828 Personal history of other malignant neoplasm of skin; Z98.42 Cataract extraction status, left eye; Z98.41 Cataract extraction status, right eye; Z87.891 Personal history of nicotine dependence; Z85.51 Personal history of malignant neoplasm of bladder; Z98.49 Cataract extraction status, unspecified eye; Z86.73 Personal history of transient ischemic attack (TIA), and cerebral infarction without residual deficits; Z82.49 Family history of ischemic heart disease and other diseases of the circulatory system; Z79.82 Long term (current) use of aspirin; Z72.89 Other problems related to lifestyle; Z79.02 Long term (current) use of antithrombotics/antiplatelets; Z88.8 Allergy status to other drugs, medicaments and biological substances
CPT/HCPCS: 36415; 70450; 70496; 70498; 70551; 71045; 80053; 80061; 81003; 81015; 83036; 83605; 84484; 85025; 85610; 85730; 86850; 86900; 86901; 87641; 93005; 93306; 99285; A9270-GY; G8978-GP-CI; G8979-GP-CI; G8980-GP-CI; J0360; Q9967

== ENCOUNTER → 2018-06-21 05:34 | Day surgery (SDC) | payer OTHER ==
[~2018-06-21 05:34] MED LIST: Buffered Lidocaine 1% SYRIN* 1 ML/SYRINGE INTRADERM ONE; Bupivacaine 0.25% SDV PF* 10 ML VIAL INJ ONE; Dexamethasone TAB* 4 MG ONE; Dexamethasone TAB* 4 MG PO ONE; Famotidine IV* 10 MG/ML 2 ML (20 mg) IV ONE; Famotidine IV* 10 MG/ML 2 ML (20 mg) ONE; KETAMINE HCL* 50 MG/ML 10 ML VIAL ONE; Lactated Ringers 1000 ML Bag* 1,000 ML IV SCH; Lidocain 1% EPI 1:100,000 * 30 ML MDV ONE; Midazolam* 1 MG/ML 5 ML VIAL (5 MG) ONE; Mineral Oil Sterile, TOPICAL* 25 ML BTL ONE; Naloxone* 0.4 MG/ML 1 ML VIAL IV PRN; Ondansetron ODT TAB* 4 MG ONE; Ondansetron TAB* 4 MG PO ONE; Propofol* 500 MG/50 ML BTL ONE; ceFAZolin 2 GM PREMIX in ORs 2 GM/50 ML BAG IVPB ONE; fentaNYL* 50 MCG/ML 2 ML VIAL (100 MCG VIAL) IV PRN; fentaNYL* 50 MCG/ML 2 ML VIAL (100 MCG VIAL) ONE; oxyCODONE/Acetamin 5/325 MG* TAB PO PRN
[2018-06-21 11:37] VITALS: BP 143/75
== END | disposition home or self-care (01) ==
LOC: OR 05:34
PROVIDERS: ATTEND Plastic Surgery
DX: C44.622 Squamous cell carcinoma of skin of right upper limb, including shoulder (principal); I10 Essential (primary) hypertension; Z85.51 Personal history of malignant neoplasm of bladder; Z86.73 Personal history of transient ischemic attack (TIA), and cerebral infarction without residual deficits; I25.10 Atherosclerotic heart disease of native coronary artery without angina pectoris
CPT/HCPCS: 88305; 88331; 88332; A9270-GY; J0690; J2250; J2704; J3010; J3490; J8540